=== PATIENT | female | born 1950 | race African-American/Black ===

== ENCOUNTER 2018-11-21 13:19 | Emergency (ER) | payer OTHER ==
[~2018-11-21] VITALS: Ht 170.2 cm; Wt 109.0 kg
[2018-11-21 14:25] VITALS: BP 146/98
== END 2018-11-21 14:25 | disposition home or self-care (01) ==
LOC: ER 13:19
DX: H66.92 Otitis media, unspecified, left ear (principal); L30.9 Dermatitis, unspecified; I11.0 Hypertensive heart disease with heart failure; I50.9 Heart failure, unspecified; E11.9 Type 2 diabetes mellitus without complications; Z88.5 Allergy status to narcotic agent
CPT/HCPCS: 99283